=== PATIENT | female | born 1985 | race Caucasian/White ===

== ENCOUNTER 2016-07-16 01:09 | Emergency (ER) | payer SELFPAY ==
[~2016-07-16] VITALS: Ht 162.6 cm; Wt 44.5 kg
[2016-07-16] MEDS ORDERED: HYDROMORPHONE INJ 2 MG/ML DISP.SYRIN IV ONE (02:00)
[2016-07-16] MEDS ORDERED: ONDANSETRON HCL/PF 4 MG/2 ML VIAL IVP ONE (02:00)
[2016-07-16] MEDS ORDERED: ONDANSETRON HCL/PF 4 MG/2 ML VIAL ONE (02:12)
[2016-07-16] MEDS ORDERED: IV SET PRIMARY 1 EA INFUS.SET MC ONE (02:12)
[2016-07-16] MEDS ORDERED: IV NS 0.9% 50 ML IV ONE (02:12)
[2016-07-16] MEDS ORDERED: HYDROMORPHONE 1 MG/1 ML DISP.SYRIN ONE (02:12)
[2016-07-16 02:48] VITALS: BP 146/102
[2016-07-16] MEDS ORDERED: ONDANSETRON 4 MG TAB.RAPDIS ONE (02:48)
[2016-07-16] MEDS ORDERED: ONDANSETRON 4 MG TAB.RAPDIS SL ONE (03:00)
== END 2016-07-16 03:05 | disposition home or self-care (01) ==
LOC: ER 01:09
DX: G43.909 Migraine, unspecified, not intractable, without status migrainosus (principal)
CPT/HCPCS: 96374; 96375; 99284; A4216; A4606; J1170; J2405; Q0162; Z7610